=== PATIENT | male | born 1990 ===

== ENCOUNTER 2020-08-25 08:38 | Outpatient (CLI) | payer OTHER | END 2020-08-25 08:54 | disposition home or self-care (01) | LOC: MRI 08:38 | DX: M54.5 Low back pain (principal); M54.16 Radiculopathy, lumbar region | CPT/HCPCS: 72148 ==

== ENCOUNTER → 2020-08-25 10:12 | Outpatient (CLI) | payer OTHER | END | disposition home or self-care (01) | LOC: LAB 10:12 | DX: I11.9 Hypertensive heart disease without heart failure (principal) ==